=== PATIENT | male | born 1945 | race Caucasian/White ===

== ENCOUNTER → 2024-12-26 | Outpatient (CLI) | payer OTHER, SELFPAY ==
--- NOTE | 2024-12-26 09:03 | US_ITS ---
PROCEDURE: ABD LIMITED W/ ELASTOGRAPHY REASON FOR EXAM: LIVER DISEASE COMPARISON: None. TECHNIQUE: Right upper quadrant abdominal ultrasound. [facility] ElastQ Imaging shear wave elastography for non-invasive assessment of liver tissue stiffness. [facility] EPIQ Elite. FINDINGS: LIVER: Size: Unremarkable Length: 16.9 cm Echotexture: Coarsened Contour: Normal Lesions: None identified Elastography: EQI Med: 5 kPa EQI Med [place]: 1.29 m/s IQR/Med: 4.9 %* GALLBLADDER: Normal COMMON BILE DUCT: Normal it measures 3.1 mm. PANCREAS: Obscured by bowel gas. Visualized portions of the right kidney are unremarkable. No right upper quadrant ascites. US/ABD Limited w/ Elastography IMPRESSION: NO TO MILD HEPATIC FIBROSIS Reference Values: SRU <1.37 m/s (5.7kPa): No to mild fibrosis 1.37 m/s - 2.2 m/s: Moderate to severe fibrosis >2.2 m/s (15kPa): Significant fibrosis / cirrhosis METAVIR Score F2 or higher: 1.34 m/s (5.7kPa) F3 or higher: 1.55 m/s (7.3kPa) F4: 1.80 m/s (10kPa) * If the IQR/Med is >30%, the variance in the measurements is a large and the a ccuracy of the measurement may be in question. Reading Location: [place] [id number]
== END | disposition home or self-care (01) ==
PROVIDERS: PCP Nurse Practitioner Gerontology; Referring Provider Nurse Practitioner Gerontology; Visit Provider Nurse Practitioner Gerontology
DX: K76.9 Liver disease, unspecified (principal)
CPT/HCPCS: 76705; 76981

== ENCOUNTER → 2025-07-05 | Outpatient (CLI) | payer OTHER, SELFPAY ==
--- NOTE | 2025-07-05 09:54 | US_ITS ---
PROCEDURE: ABD LIMITED W/ ELASTOGRAPHY 07/05/2025 REASON FOR EXAM: LIVER DISEASE COMPARISON: December 26, 2024 TECHNIQUE: Procedure Code: [id number] Modality: US Procedure: ABD LIMITED W/ ELASTOGRAPHY FINDINGS: LIVER: Elastography: EQI Med: 6.3 kPa EQI Med [place]: 1.42 m/s IQR/Med: 22 %* Liver is 16.0 cm. Echotexture is heterogeneous. Benign cyst right lobe liver 6.6 x 4.5 x 5.4 cm. Smaller cyst is 1.7 x 1.6 x 1.8 cm. Portal vein is patent and hepatopetal on color and spectral Doppler. Nonshadowing echogenic focus near the gallbladder fossa is limited possibly some periportal fat. This is not appreciated on prior exam Elastography: Gallbladder: Normal. Negative sonographic Jacques's sign. Common bile duct: Normal measuring 3.1 mm. Pancreas: Obscured by bowel gas Kidneys: The right kidney measures 9.1 x 3.5 x 5.1 cm. No collecting system dilation. US/ABD Limited w/ Elastography IMPRESSION: 1. Heterogeneous liver. Benign liver cysts. Metavir score: F2-F3. Previously F0-F1 Reference Values: SRU <1.37 m/s (5.7kPa): No to mild fibrosis 1.37 m/s - 2.2 m/s: Moderate to severe fibrosis >2.2 m/s (15kPa): Significant fibrosis / cirrhosis METAVIR Score F2 or higher: 1.34 m/s (5.7kPa) F3 or higher: 1.55 m/s (7.3kPa) F4: 1.80 m/s (10kPa) * If the IQR/Med is >30%, the variance in the measurements is a large and the a ccuracy of the measurement may be in question. Reading Location: [id number]
== END | disposition home or self-care (01) ==
LOC: US 09:50
PROVIDERS: PCP Nurse Practitioner Gerontology; Referring Provider Nurse Practitioner Gerontology; Visit Provider Nurse Practitioner Gerontology
DX: K76.9 Liver disease, unspecified (principal)
CPT/HCPCS: 76705; 76981